=== PATIENT | female | born 1975 | race Caucasian/White ===

== ENCOUNTER → 2019-01-17 | Outpatient (CLI) | payer BC ==
--- NOTE | 2019-01-19 19:08 | Diagnostic Imaging Report ---
EXAMINATION: Digital mammogram bilateral screening. INDICATION: Screening. This is the patient's baseline study. At this time, there are no current complaints. The current study was also evaluated with a Computer Aided Detection (CAD) system. 3-D tomosynthesis was also performed and reviewed. FINDINGS: The fibroglandular tissue in both breasts is dense. This does limit the sensitivity of this exam. There is mild motion artifact on the CC view of the left breast. This view was repeated, but again there is mild motion artifact. There is no primary or secondary sign of malignancy. IMPRESSION: 1. There is no evidence for malignancy. 2. The patient should have her annual bilateral screening mammogram on schedule in January of 2020. ACR BI-RADS Category 1: Negative. Result letter will be mailed to the patient. Note: At least 10% of breast cancer is not imaged by mammography. Dictated by: Dictated on workstation # [id number]
== END ==
LOC: RAD 14:37
PROVIDERS: ATTEND Obstetrics & Gynecology
DX: Z12.31 Encounter for screening mammogram for malignant neoplasm of breast (principal)
CPT/HCPCS: 77067

== ENCOUNTER 2021-08-10 10:47 | Emergency (ER) | payer OTHER ==
[~2021-08-10] VITALS: Ht 152.4 cm; Wt 56.3 kg
--- NOTE | 2021-08-10 11:00 | ED Psychosocial ---
General Chief Complaint: Psych/Social Disorder Stated Complaint: MENTAL HEALTH EVAL History of Present Illness Date Seen by Provider: Aug 10, 2021 Time Seen by Provider: 11:00 Initial Comments 46-year-old female with PMH of psych disorder/seasonal allergies, is brought in by her with complaints of delusions over the past 6 months which has been worsening. Patient has been claiming that there is a radio under her house and is listening to everything she is saying. Patient is able to answer ques tions and converse during H&P. Denies headaches, chest pain, seizures, SOB, abdominal pain, fever, suicidal ideation, depression, palpitation, dysuria. Allergies and Home Medications Allergies Coded Allergies: neomycin (Verified Allergy, Unknown, 08/10/21) Patient Home Medication List Home Medication List Reviewed: Yes Review of Systems Constitutional: no symptoms reported EENTM: no symptoms reported Respiratory: no symptoms reported Cardiovascular: no symptoms reported Gastrointestinal: no symptoms reported Genitourinary: no symptoms reported Musculoskeletal: no symptoms reported Skin: no symptoms reported Psychiatric/Neurological: Other (delusions) Physical Exam Vital Signs - First Documented 08/10/21 10:57 Temp 36.7 Pulse 133 Resp 18 B/P (MAP) 116/101 (106) Pulse Ox 98 O2 Delivery Room Air Capillary Refill : Height, Weight, BMI Height: '" Weight: lbs. oz. kg; BMI Method: General Appearance: no apparent distress HEENT: PERRL/EOMI Neck: full range of motion, normal inspection Respiratory: chest non-tender, lungs clear, normal breath sounds Cardiovascular: tachycardia Gastrointestinal: normal bowel sounds, non tender, soft Neurologic/Psychiatric: council on aging director II-XII nml as tested, no motor/sensory deficits, alert, oriented x 3 Behavior/Eye Contact: cooperative, good eye contact Thoughts/Hallucinations: delusions, paranoid Skin: normal color Progress/Results/Core Measures Results/Orders Lab Results Laboratory Tests Test 08/10/21 11:07 Range/Units White Blood Count 9.2 4.3-11.0 10^3/uL Red Blood Count 4.93 3.80-5.11 10^6/uL Hemoglobin 15.8 11.5-16.0 g/dL Hematocrit 47 35-52 % Mean Corpuscular Volume 96 80-99 fL Mean Corpuscular Hemoglobin 32 25-34 pg Mean Corpuscular Hemoglobin Concent 33 32-36 g/dL Red Cell Distribution Width 11.8 10.0-14.5 % Platelet Count 362 130-400 10^3/uL Mean Platelet Volume 8.6 L 9.0-12.2 fL Immature Granulocyte % (Auto) 0 % Neutrophils (%) (Auto) 75 42-75 % Lymphocytes (%) (Auto) 20 12-44 % Monocytes (%) (Auto) 5 0-12 % Eosinophils (%) (Auto) 0 0-10 % Basophils (%) (Auto) 0 0-10 % Neutrophils # (Auto) 6.9 1.8-7.8 10^3/uL Lymphocytes # (Auto) 1.8 1.0-4.0 10^3/uL Monocytes # (Auto) 0.5 0.0-1.0 10^3/uL Eosinophils # (Auto) 0.0 0.0-0.3 10^3/uL Basophils # (Auto) 0.0 0.0-0.1 10^3/uL Immature Granulocyte # (Auto) 0.0 0.0-0.1 10^3/uL Sodium Level 136 135-145 MMOL/L Potassium Level 3.8 3.6-5.0 MMOL/L Chloride Level 102 98-107 MMOL/L Carbon Dioxide Level 22 21-32 MMOL/L Anion Gap 12 5-14 MMOL/L Blood Urea Nitrogen 9 7-18 MG/DL Creatinine 0.87 0.60-1.30 MG/DL Estimat Glomerular Filtration Rate 83 BUN/Creatinine Ratio 10 Glucose Level 116 H 70-105 MG/DL Calcium Level 9.7 8.5-10.1 MG/DL Corrected Calcium 9.5 8.5-10.1 MG/DL Total Bilirubin 1.8 H 0.1-1.0 MG/DL Aspartate Amino Transf (AST/SGOT) 11 5-34 U/L Alanine Aminotransferase (ALT/SGPT) 10 0-55 U/L Alkaline Phosphatase 70 40-136 U/L Troponin I < 0.30 <0.30 NG/ML Total Protein 7.7 6.4-8.2 GM/DL Albumin 4.3 3.2-4.5 GM/DL Free Thyroxine 1.06 0.70-1.48 NG/DL TSH [place] Testing 0.05 L 0.35-4.94 UIU/ML Salicylates Level < 0.3 L 5.0-20.0 MG/DL Acetaminophen Level < 10 L 10-30 UG/ML Serum Alcohol < 10 <10 MG/DL My Orders Orders - LUCRECIA SOLIS MD Ua Culture If Indicated (08/10/21 11:08) Cbc With Automated Diff (08/10/21 11:08) Comprehensive Metabolic Panel (08/10/21 11:08) Alcohol (08/10/21 11:08) Drug Screen Stat (Urine) (08/10/21 11:08) Acetaminophen (08/10/21 11:08) Salicylate (08/10/21 11:08) Ekg Tracing (08/10/21 11:08) Hcg,Qualitative Urine (08/10/21 11:08) Ed Iv/Invasive Line Start (08/10/21 11:08) Thyroid Analyzer (08/10/21 11:08) Monitor-Rhythm Ecg Trace Only (08/10/21 11:08) Bh Status Checks/Observation Q15M (08/10/21 11:08) Troponin I Fs (08/10/21 11:38) Free T4 (Free Thyroxine) (08/10/21 11:07) Vital Signs/I&O 08/10/21 10:57 Temp 36.7 Pulse 133 Resp 18 B/P (MAP) 116/101 (106) Pulse Ox 98 O2 Delivery Room Air Progress Progress Note : Progress Note 1. PSYCHOSIS/ Delusions: - EKG - Labs unremarkable - UA/ UDS: pt refuses to give urine - Pt medically cleared barring urine exam. - Advised OTC melatonin for sleep - Psych screener consult : will discharge with safety plan and appointment follow up scheduled for August 13 at 10AM. -The patient was seen in the ED, and treated appropriately to presentation at a specific point in time. Patient is informed that there is a possibility that disease and illness can evolve and change in acuity rapidly or slowly after patient is discharged from the ER. Precautionary advice given to the patient for immediate return to ER if symptoms worsen or do not resolve, and to seek emergency care sooner rather than later. Pt also advised on the importance of PCP follow up and compliance with management and follow up plan with PCP and/or specialist, as this is part of the management plan. Pt verbally expressed understanding. Initial ECG Impression Date: Aug 10, 2021 Initial ECG Impression Time: 11:02 Initial ECG Rate: 122 Initial ECG Rhythm: S.Tach Initial ECG Impression: Nonspecific Changes Initial ECG Comparisson: No Previous ECG Available Departure Impression Primary Impression: Psychosis Qualified Codes: F29 - Unspecified psychosis not due to a substance or known physiological condition Additional Impression: Delusional disorder Disposition: 01 HOME, SELF-CARE Condition: Stable/Unchanged Departure-Patient Inst. Referrals: [facility] (PCP) Primary Care Physician NO,LOCAL PHYSICIAN (Family) Primary Care Physician Patient Instructions: Acute Psychosis (DC) Add. Discharge Instructions: - Psych screener consult : will discharge with safety plan and appointment follow up scheduled for August 13 at 10AM. All discharge instructions reviewed with patient and/or family. Voiced understanding. LUCRECIA SOLIS MD Aug 10, 2021 11:00
[2021-08-10 11:15] LABS: BASOPHILS % (AUTO) 0 % (0-10); EOSINOPHILS % (AUTO) 0 % (0-10); HEMATOCRIT 47 % (35-52); HEMOGLOBIN 15.8 g/dL (11.5-16.0); LYMPHOCYTES # (AUTO) 1.8 10^3/uL (1.0-4.0); LYMPHOCYTES % (AUTO) 20 % (12-44); MEAN CORPUSCULAR HEMOGLOBIN 32 pg (25-34); MEAN CORPUSCULAR HGB CONC 33 g/dL (32-36); MEAN CORPUSCULAR VOLUME 96 fL (80-99); MEAN PLATELET VOLUME 8.6 fL (9.0-12.2); MONOCYTES # (AUTO) 0.5 10^3/uL (0.0-1.0); MONOCYTES % (AUTO) 5 % (0-12); NEUTROPHILS # (AUTO) 6.9 10^3/uL (1.8-7.8); NEUTROPHILS % (AUTO) 75 % (42-75); PLATELET COUNT 362 10^3/uL (130-400); WHITE BLOOD COUNT 9.2 10^3/uL (4.3-11.0)
[2021-08-10 11:40] LABS: ACETAMINOPHEN < 10 UG/ML (10-30); ALANINE AMINOTRANSFERASE 10 U/L (0-55); ALBUMIN 4.3 GM/DL (3.2-4.5); ALKALINE PHOSPHATASE 70 U/L (40-136); BILIRUBIN,TOTAL 1.8 MG/DL (0.1-1.0); BUN/CREATININE RATIO 10; CALCIUM 9.7 MG/DL (8.5-10.1); CARBON DIOXIDE 22 MMOL/L (21-32); CHLORIDE 102 MMOL/L (98-107); CREATININE SERUM 0.87 MG/DL (0.60-1.30); GFR ESTIMATED 83; GLUCOSE 116 MG/DL (70-105); POTASSIUM 3.8 MMOL/L (3.6-5.0); SALICYLATE < 0.3 MG/DL (5.0-20.0); SODIUM 136 MMOL/L (135-145); TOTAL PROTEIN 7.7 GM/DL (6.4-8.2)
[2021-08-10 16:10] LABS: TSH (THYROID ANALYZER) 0.05 UIU/ML (0.35-4.94)
[2021-08-10 16:50] LABS: FREE T4 (FREE THYROXINE) 1.06 NG/DL (0.70-1.48)
[2021-08-10 17:25] VITALS: BP 126/96
== END 2021-08-10 17:25 | disposition home or self-care (01) ==
LOC: EDUNIT# 10:47 → ER FS 10:53
DX: F22 Delusional disorders (principal)
CPT/HCPCS: 80053; 80320; 80329; 84439; 84443; 84484; 93005